=== PATIENT | female | born 1950 ===

== ENCOUNTER 2019-09-28 09:56 | Outpatient (CLI) | payer OTHER | END 2019-09-28 09:57 | disposition home or self-care (01) | LOC: SONOGRAMA 09:56 | DX: E04.1 Nontoxic single thyroid nodule (principal); R59.1 Generalized enlarged lymph nodes ==

== ENCOUNTER 2020-08-15 09:55 | Outpatient (CLI) | payer OTHER | END 2020-08-15 09:58 | disposition home or self-care (01) | LOC: SONOGRAMA 09:55 | PROVIDERS: ATTEND Pathology Anatomic Pathology & Clinical Pathology | DX: D34 Benign neoplasm of thyroid gland (principal); E04.8 Other specified nontoxic goiter ==